=== PATIENT | female | born 1955 | race Two or more races ===

== ENCOUNTER 2020-07-06 14:59 | Inpatient (IN) | payer MEDICARE, MEDICAID ==
[~2020-07-06] VITALS: Ht 157.5 cm; Wt 63.4 kg
[~2020-07-06 14:59] MED LIST: ASPI81CH43; DILT40TA; ISOS20TA56; LEVO25TA9; SIMV10TA84
[2020-07-06] MEDS ORDERED: SODIUM CHLORIDE 0.9% 1,000 ML IV ONE (15:14)
[2020-07-06 16:44] LABS: Basophils # (auto) 0.1 10 ^3/uL (0-0.2); Eosinophils # (auto) 0.2 10 ^3/uL (0-0.8); Eosinophils % (auto) 1.6 % (0.0-7.0); Hemoglobin 14.5 g/dL (12.2-16.2); Lymphocytes # (auto) 1.5 10 ^3/uL (0.4-5.4); Lymphocytes % (auto) 15.5 % (10.0-50.0); Mean Corpuscular Hemoglobin 29.5 pg (28.0-32.0); Mean Corpuscular Hgb Conc. 33.1 g/dL (32.0-36.0); Mean Corpuscular Volume 89.1 fL (80.0-100.0); Monocytes # (auto) 0.9 10 ^3/uL (0-1.3); Monocytes % (auto) 9.2 % (0.0-12.0); Neutrophils % (auto) 72.7 % (37.0-80.0); Platelet Count (auto) 258 10^3/uL (140-450); Red Blood Cells 4.93 10^6/uL (4.0-5.20); Red Cell Distribution Width 12.9 % (11.8-14.3); White Blood Cell 9.6 10^3/uL (4.4-10.8)
[2020-07-06 16:56] LABS: Albumin 4.2 g/dL (3.4-5.0); Anion Gap 6 (5-15); Blood Urea Nitrogen 12 mg/dL (7-18); Carbon Dioxide 27 mmol/L (21-32); Chloride 106 mmol/L (98-107); Glucose 114 mg/dL (74-106); Potassium 4.2 mmol/L (3.5-5.1); Sodium 139 mmol/L (136-145)
[2020-07-06 17:01] LABS: Alanine Aminotransferase 31 U/L (13-56); Alkaline Phosphatase 130 U/L (45-117); Aspartate Aminotransferase 26 U/L (15-37); BUN/Creatinine Ratio 13.8; Bilirubin, Total 0.6 mg/dL (0.2-1.0); GFR African American 84 mL/min; GFR Non-African American 69 mL/min; Total Protein 7.7 g/dL (6.4-8.2)
[2020-07-06 17:02] LABS: INR 0.97 (0.9-1.15); Partial Thromboplastin Time 26.8 sec (23.0-31.2)
[2020-07-06] MEDS ORDERED: NITROGLYCERIN 0.4 MG SL TAB SL PRN (19:15)
[2020-07-06] MEDS ORDERED: MORPHINE SULF INJ 2 MG/ML SYRINGE 1ML IV PRN ×2 (19:15→19:45)
[2020-07-06 19:29] LABS: Urine Bacteria NONE SEEN /hpf (None Seen); Urine Blood Negative /uL (Negative); Urine Specific Gravity 1.006 (1.001-1.035); Urine WBC 2 /hpf (0 - 5)
[2020-07-06] MEDS ORDERED: traMADol HCL 50 MG TAB PO PRN (19:45)
[2020-07-06] MEDS ORDERED: TEMAZEPAM 15 MG CAP PO PRN (19:45)
[2020-07-06] MEDS ORDERED: ACETAMINOPHEN 500 MG TAB PO PRN (19:45)
[2020-07-06] MEDS ORDERED: ONDANSETRON HCL 4 MG/2 ML VIAL IV PRN (19:45)
[2020-07-06 21:00] VITALS: BP 154/83
[2020-07-06 21:41] VITALS: BP 154/83
[2020-07-06] MEDS ORDERED: LISI2.5T47 PO (22:09)
[2020-07-06] MEDS: SODIUM CHLORIDE 0.9% 1,000 ML IV SCH (22:55)
[2020-07-06] MEDS: metroNIDAZOLE 500MG/100ML 100 ML IV SCH (22:55)
[2020-07-07 01:05] LABS: Hemoglobin 14.7 g/dL (12.2-16.2)
[2020-07-07] MEDS: SODIUM CHLORIDE 0.9% 1,000 ML IV SCH ×2 (04:34→13:21)
[2020-07-07 04:41] VITALS: BP 143/75
[2020-07-07] MEDS: metroNIDAZOLE 500MG/100ML 100 ML IV SCH ×2 (05:54→13:21)
[2020-07-07 05:59] LABS: Basophils # (auto) 0.1 10 ^3/uL (0-0.2); Basophils % (auto) 1.2 % (0.0-2.0); Eosinophils # (auto) 0.1 10 ^3/uL (0-0.8); Eosinophils % (auto) 1.9 % (0.0-7.0); Hematocrit 41.6 % (36.0-46.0); Hemoglobin 14.2 g/dL (12.2-16.2); Lymphocytes # (auto) 1.6 10 ^3/uL (0.4-5.4); Lymphocytes % (auto) 29.4 % (10.0-50.0); Mean Corpuscular Hemoglobin 30.3 pg (28.0-32.0); Mean Corpuscular Hgb Conc. 34.2 g/dL (32.0-36.0); Mean Corpuscular Volume 88.8 fL (80.0-100.0); Monocytes # (auto) 0.8 10 ^3/uL (0-1.3); Monocytes % (auto) 14.4 % (0.0-12.0); Neutrophils # (auto) 2.8 10 ^3/uL (1.6-8.6); Neutrophils % (auto) 53.1 % (37.0-80.0); Platelet Count (auto) 229 10^3/uL (140-450); Red Blood Cells 4.69 10^6/uL (4.0-5.20); Red Cell Distribution Width 13.2 % (11.8-14.3); White Blood Cell 5.4 10^3/uL (4.4-10.8)
[2020-07-07 08:57] VITALS: BP 138/69
[2020-07-07] MEDS ORDERED: PANTOPRAZOLE 40 MG TAB PO SCH (10:00)
[2020-07-07] MEDS ORDERED: cloNIDine HCL 0.1 MG TAB PO PRN (11:30)
[2020-07-07] MEDS ORDERED: GOLYTELY 4L KIT PO ONE (11:45)
[2020-07-07 12:03] LABS: Hematocrit 43.4 % (36.0-46.0); Hemoglobin 14.9 g/dL (12.2-16.2)
[2020-07-07 13:00] VITALS: BP 156/76
[2020-07-07] MEDS ORDERED: SIMV-8 PO (15:02)
[2020-07-07] MEDS ORDERED: DILT-29 PO (15:07)
[2020-07-07] MEDS ORDERED: LEVO100T8 PO (15:07)
[2020-07-07] MEDS ORDERED: ENALAPRIL MALEATE 10 MG TAB PO ONE (17:00)
[2020-07-07] MEDS ORDERED: ISOSORBIDE MONONITRATE IR 20 MG TAB PO SCH (22:00)
[2020-07-07] MEDS ORDERED: ATORVASTATIN 20 MG TAB PO SCH ×2 (22:00)
[2020-07-08] MEDS ORDERED: GOLYTELY 4L KIT PO ONE (06:00)
[2020-07-08] MEDS ORDERED: LEVOTHYROXINE SODIUM 25 MCG TAB PO SCH (07:00)
[2020-07-08] MEDS ORDERED: LEVOTHYROXINE SODIUM 100 MCG TAB PO SCH (07:00)
[2020-07-08] MEDS ORDERED: ISOSORBIDE MONONITRATE IR 20 MG TAB PO SCH (10:00)
[2020-07-08] MEDS ORDERED: ENALAPRIL MALEATE 10 MG TAB PO SCH (10:00)
[2020-07-08] MEDS ORDERED: LISINOPRIL 5 MG TAB PO SCH (10:00)
== END 2020-07-07 16:46 | disposition left against medical advice (07) | DRG 379 ==
LOC: ER 14:59 → TELE-WESTW 15:00
PROVIDERS: ADMIT Internal Medicine; ATTEND Internal Medicine
DX: K62.5 Hemorrhage of anus and rectum (principal); I10 Essential (primary) hypertension; Z90.710 Acquired absence of both cervix and uterus; M51.36 Other intervertebral disc degeneration, lumbar region; M19.90 Unspecified osteoarthritis, unspecified site; Z88.5 Allergy status to narcotic agent; Z20.828 Contact with and (suspected) exposure to other viral communicable diseases; Z79.82 Long term (current) use of aspirin; K44.9 Diaphragmatic hernia without obstruction or gangrene; M47.896 Other spondylosis, lumbar region; Z53.29 Procedure and treatment not carried out because of patient's decision for other reasons
CPT/HCPCS: 36415; 71045; 74176; 80053; 81001; 82270; 82378; 84484; 85014; 85018; 85025; 85045; 85610; 85652; 85730; 87426; 93005; G0378; J3490